=== PATIENT | male | born 1960 | race Caucasian/White ===

== ENCOUNTER 2018-11-26 18:49 | Emergency (ER) | payer MEDICAID ==
[~2018-11-26] VITALS: Ht 167.6 cm; Wt 81.6 kg
[2018-11-26 19:12] VITALS: BP 156/60
--- NOTE | 2018-11-26 19:14 | NUR ---
PT BIB CARE TO ER BED 5
--- NOTE | 2018-11-26 19:15 | NUR ---
58/M BIBA FROM HOME. PER EMS, PT IS COMING IN FOR ALOC SINCE 0900. PER EMS, PT'S STATED THAT PT HAD A SIMILAR EPISODE WITH UTI MONTHS AGO. PT ARRIVES TO ED, AOX1 (NAME), GCS 14 ([id number]), PERRLA, OBEYS ALL COMMANDS, PT WITH R SIDED WEAKNESS FROM PREVIOUS CVA, +1 R KOSHER SEALER AND R FOOT STRENGTH, +2 L KOSHER SEALER AND L FOOT STRENGTH, NO CHANGE IN BASELINE. -FACIAL DROOP, UNABLE TO KEEP R ARM UP DUE TO PREVIOUS CVA, SPEECH CLEAR. RR EVEN AND UNLABORED. LUNG SOUNDS CLEAR BL. CONNECTED MONITOR, ER MD MADE AWARE. HX CVA (2014), BPH, HTN, HIGH CHOLESTEROL
[2018-11-26] MEDS ORDERED: ASPI-1718 PO (19:26)
[2018-11-26] MEDS ORDERED: TAMS0.4C97 PO (19:26)
[2018-11-26] MEDS ORDERED: LIP80 PO (19:26)
[2018-11-26] MEDS ORDERED: BACL10TA4 PO (19:26)
[2018-11-26] MEDS ORDERED: CLOP75TA55 PO (19:26)
[2018-11-26] MEDS ORDERED: BENA20TA PO (19:26)
[2018-11-26] MEDS ORDERED: NACL 0.9% 1,000 ML IV ONE (20:33)
[2018-11-26] MEDS ORDERED: LEVOFLOXACIN 500 MG/D5W PREMIX 100 ML IV ONE (20:35)
[2018-11-26 21:17] LABS: BASOPHILS % (AUTO) 0.2 % (0.0-2.0); EOSINOPHILS % (AUTO) 0.4 % (0.0-4.0); HEMATOCRIT 38.7 % (36-52); LYMPHOCYTES # (AUTO) 1.7 K/uL (2.0-11.5); LYMPHOCYTES % (AUTO) 24.8 % (20.5-51.1); MEAN CORPUSCULAR HEMOGLOBIN 31 pg (27-31); MEAN CORPUSCULAR HGB CONC 34 g/dL (33-37); MEAN CORPUSCULAR VOLUME 93.1 fL (80-94); MONOCYTES # (AUTO) 0.4 K/uL (0.8-1.0); MONOCYTES % (AUTO) 5.6 % (1.7-9.3); NEUTROPHILS # (AUTO) 4.8 K/uL (1.8-7.7); PLATELET COUNT (AUTO) 232 K/uL (140-450); RED BLOOD CELL COUNT(AUTO) 4.16 MIL/uL (4.20-6.10); RED CELL DISTRIBUTION WIDTH 14.7 % (11.6-13.7); WHITE BLOOD COUNT (AUTO) 6.9 K/uL (4.8-10.8)
[2018-11-26 21:21] LABS: APPEARANCE,URINE HAZY (CLEAR); BILIRUBIN,URINE NEGATIVE (NEGATIVE); BLOOD, URINE NEGATIVE (NEGATIVE); COLOR,URINE YELLOW (YELLOW); LEUKOCYTE ESTERASE ,URINE NEGATIVE (NEGATIVE); NITRITE, URINE POSITIVE (NEGATIVE); UGLUCOSE NEGATIVE (NEGATIVE)
[2018-11-26 21:29] LABS: ANION GAP 13.8 (8-16); CARBON DIOXIDE 24.3 mmol/L (21-32); CREATININE 0.9 mg/dL (0.7-1.3); POTASSIUM 4.1 mmol/L (3.5-5.1)
[2018-11-26 21:34] LABS: ALBUMIN 3.6 g/dL (3.4-5.0); TOTAL BILIRUBIN 0.6 mg/dL (0.0-1.0)
[2018-11-26 21:35] LABS: PROTHROMBIN TIME 9.9 secs (10.8-13.4)
--- NOTE | 2018-11-26 21:36 | NUR ---
PT LAYING IN BED, RR EVEN AND UNLABORED. VSS, DENIES ANY HEADACHE OR ANY PAIN, DENIES N/V. ALL NEEDS MET AT THIS TIME.
[2018-11-26 22:34] VITALS: BP 121/60
--- NOTE | 2018-11-26 22:34 | NUR ---
Patient discharged with v/s stable. Written and verbal after care instructions given and explained. Patient verbalized understanding. Wheelchair assisted to car, ambulatory with assist. All questions addressed prior to discharge. Advised to follow up with PMD.
== END 2018-11-26 22:34 | disposition home or self-care (01) ==
LOC: MED 18:49
DX: F09 Unspecified mental disorder due to known physiological condition (principal); I10 Essential (primary) hypertension; Z86.73 Personal history of transient ischemic attack (TIA), and cerebral infarction without residual deficits; Z79.82 Long term (current) use of aspirin; Z79.899 Other long term (current) drug therapy
CPT/HCPCS: 36415; 36600; 71045; 80053; 81003; 82803; 83605; 85025; 85610; 85730; 87040; 87086; 93005; 96361; 96365; 99284; J1956; J7030; Q0092; 96374